=== PATIENT | male | born 1960 | race Caucasian/White ===

== ENCOUNTER 2024-04-28 02:18 | Emergency (ER) | payer OTHER, BC ==
[2024-04-28] MEDS ORDERED: Acetaminophen/Codeine 300-30 MG Tab PO ONE (02:19)
[2024-04-28 03:03] LABS: BLOOD UREA NITROGEN,BUN 6 mg/dL (7-18); BUN/CREATININE RATIO 8.6 (9-20); CALCIUM 9.4 mg/dL (8.6-10.2); CARBON DIOXIDE,CO2 26 mmol/L (21-32); CHLORIDE,CL 97 mmol/L (100-110); CREATININE 0.7 mg/dL (0.70-1.30); ESTIMATED GFR 104 mL/min (>60); GLUCOSE RANDOM 116 mg/dL (80-116); POTASSIUM,K 4.1 mmol/L (3.5-5.3); SODIUM,NA 135 mmol/L (135-145)
[2024-04-28 03:08] LABS: BASOPHILS ABSOLUTE AUTO 0.1 x10-3/uL (0.0-0.3); BASOPHILS PERCENT AUTO 0.9 % (0.3-3.8); EOSINOPHILS ABSOLUTE AUTO 0.1 x10-3/uL (0.0-0.6); EOSINOPHILS PERCENT AUTO 1.5 % (0.1-6.8); HEMATOCRIT 48.5 % (38.3-50.1); HEMOGLOBIN 16.6 g/dL (12.9-17.7); LYMPHOCYTES ABSOLUTE AUTO 0.9 x10-3/uL (0.5-4.5); LYMPHOCYTES PERCENT AUTO 14.1 % (15.8-45.3); MEAN CORPUSCULAR HEMOGLOBIN 30.6 pg (27.0-33.3); MEAN CORPUSCULAR HGB CONC 34.3 g/dL (28.7-35.3); MEAN CORPUSCULAR VOLUME 89.1 fL (80.8-98.7); MEAN PLATELET VOLUME 8.8 fL (6.7-11.0); MONOCYTES ABSOLUTE AUTO 0.8 x10-3/uL (0.0-1.2); MONOCYTES PERCENT AUTO 11.9 % (5.5-15.2); NEUTROPHILS ABSOLUTE AUTO 4.5 x10-3/uL (1.7-6.9); NEUTROPHILS PERCENT AUTO 71.6 % (40.3-71.8); PLATELET COUNT,PLT 221 x10(3)uL (117-477); RED BLOOD CELL COUNT 5.44 x10(6)uL (3.90-5.90); RED CELL DISTRIBUTION WIDTH 13.8 % (12.4-15.0); WHITE BLOOD CELL COUNT,WBC 6.3 x10-3/uL (3.2-10.1)
[2024-04-28 03:09] LABS: ALANINE AMINOTRANSFERASE,ALT 62 U/L (12-36); ALBUMIN 3.9 g/dL (3.2-4.6); ALKALINE PHOSPHATASE 118 IU/L (56-112); ASPARTATE AMNIOTRANSFERASE,AST 51 IU/L (5-25); BILIRUBIN TOTAL 0.6 mg/dL (0.1-1.3); PROTEIN TOTAL,TP 7.9 g/dL (6.0-8.0)
[2024-04-28] MEDS: Ketorolac 30 MG/ML SDV IM ONE (03:09)
[2024-04-28 03:31] LABS: INFLUENZA A NAA NEGATIVE (NEGATIVE); INFLUENZA B NAA NEGATIVE (NEGATIVE); RESPIRATORY SYNCYTIAL VIR NAA NEGATIVE (NEGATIVE)
[2024-04-28 03:33] LABS: CORONAVIRUS COVID-19 NAA NEGATIVE (NEGATIVE)
== END 2024-04-28 03:40 | disposition home or self-care (01) ==
LOC: FB.ED 02:18
DX: R07.81 Pleurodynia (principal); F17.210 Nicotine dependence, cigarettes, uncomplicated; Z88.0 Allergy status to penicillin; Z79.899 Other long term (current) drug therapy; X50.0XXA Overexertion from strenuous movement or load, initial encounter; Y92.512 Supermarket, store or market as the place of occurrence of the external cause
CPT/HCPCS: 0241U; 36415; 71046; 80053; 84484; 85025; 87651; 96372; 99283; A9270; J1885

== ENCOUNTER 2024-06-07 07:23 | Emergency (ER) | payer BC, OTHER | END 2024-06-07 07:44 | disposition left against medical advice (07) | LOC: FB.ED 07:23 | DX: Z53.21 Procedure and treatment not carried out due to patient leaving prior to being seen by health care provider (principal) ==

== ENCOUNTER 2025-01-04 03:28 | Observation (INO) | payer MEDICAID ==
[2025-01-04 04:05] LABS: GLUCOSE,URINE NORMAL (NORMAL); OCCULT BLOOD,URINE NEGATIVE (NEGATIVE)
[2025-01-04 04:09] LABS: APPEARANCE,URINE CLEAR (CLEAR)
[2025-01-04 04:10] LABS: SQUAMOUS EPITHELIAL CELLS,UR RARE (NS,R,O)
[2025-01-04] MEDS ORDERED: Naloxone 0.4 MG/ML SDV IVPUSH PRN (04:18)
[2025-01-04] MEDS: Sodium Chloride 0.9% 10 ML Syringe FLUSH PRN (04:31)
[2025-01-04] MEDS: Ondansetron 4 MG/2 ML SDV IVPUSH ONE (04:36)
[2025-01-04 04:37] LABS: BASOPHILS ABSOLUTE AUTO 0.1 x10-3/uL (0.0-0.3); BASOPHILS PERCENT AUTO 1.0 % (0.3-3.8); EOSINOPHILS ABSOLUTE AUTO 0.1 x10-3/uL (0.0-0.6); EOSINOPHILS PERCENT AUTO 1.2 % (0.1-6.8); LYMPHOCYTES ABSOLUTE AUTO 1.7 x10-3/uL (0.5-4.5); LYMPHOCYTES PERCENT AUTO 18.0 % (15.8-45.3); MEAN PLATELET VOLUME 8.9 fL (6.7-11.0); MONOCYTES ABSOLUTE AUTO 1.0 x10-3/uL (0.0-1.2); MONOCYTES PERCENT AUTO 10.4 % (5.5-15.2); NEUTROPHILS ABSOLUTE AUTO 6.5 x10-3/uL (1.7-6.9); NEUTROPHILS PERCENT AUTO 69.4 % (40.3-71.8); PLATELET COUNT,PLT 219 x10(3)uL (117-477); RED BLOOD CELL COUNT 4.91 x10(6)uL (3.90-5.90); RED CELL DISTRIBUTION WIDTH 12.6 % (12.4-15.0); WHITE BLOOD CELL COUNT,WBC 9.3 x10-3/uL (3.2-10.1)
[2025-01-04] MEDS: HYDROmorphone 2 MG/ML SDV IVPUSH ONE (04:39)
[2025-01-04 04:47] LABS: CARBON DIOXIDE,CO2 30 mmol/L (21-32); CHLORIDE,CL 91 mmol/L (100-110); CREATININE 0.6 mg/dL (0.70-1.30); EST CRCL DRUG DOSING (CG) 140.11 mL/min; ESTIMATED GFR 109 mL/min (>60); GLUCOSE RANDOM 114 mg/dL (80-116); POTASSIUM,K 3.1 mmol/L (3.5-5.3); SODIUM,NA 132 mmol/L (135-145)
[2025-01-04 04:48] LABS: BLOOD UREA NITROGEN,BUN < 5 mg/dL (7-18)
[2025-01-04 04:53] LABS: A/G RATIO 1.0; ALANINE AMINOTRANSFERASE,ALT 25 U/L (12-36); ASPARTATE AMNIOTRANSFERASE,AST 25 IU/L (5-25); BILIRUBIN TOTAL 0.7 mg/dL (0.1-1.3); PROTEIN TOTAL,TP 6.9 g/dL (6.0-8.0)
[2025-01-04] MEDS: Iopamidol 755 Mg/ML 100 ML Bottle IV SCH (05:34)
[2025-01-04] MEDS: Ketorolac 30 MG/ML SDV IVPUSH ONE (05:36)
[2025-01-04] MEDS: Acetaminophen/HYDROcodone 325-5 MG Tab PO PRN (10:12)
[2025-01-04 10:18] LABS: BASE EXCESS ARTERIAL,POC 4 mmol/L (-2 - 3+); HCO3 ARTERIAL,POC 28 mmol/L (21-28); O2 SATURATION ARTERIAL,POC 95.9 % (94-98); PO2 ARTERIAL,POC 76 mmHg (83-108)
[2025-01-04] MEDS: HYDROmorphone 2 MG/ML SDV IVPUSH PRN (13:50)
[2025-01-04] MEDS: Ondansetron 4 MG/2 ML SDV IV PRN (19:49)
== END 2025-01-05 10:25 | disposition home or self-care (01) ==
LOC: FB.ED 03:28 → UNDOADMIN 07:56 → FB.MS 07:56
PROVIDERS: ADMIT Surgery; ATTEND Surgery
DX: S22.42XA Multiple fractures of ribs, left side, initial encounter for closed fracture (principal); J93.9 Pneumothorax, unspecified; I10 Essential (primary) hypertension; E66.9 Obesity, unspecified; Z88.0 Allergy status to penicillin; Z72.0 Tobacco use; Z68.30 Body mass index [BMI] 30.0-30.9, adult; Z79.899 Other long term (current) drug therapy; W16.212A Fall in (into) filled bathtub causing other injury, initial encounter
CPT/HCPCS: 36415; 71045; 71260; 74177; 80053; 81001; 82803; 83735; 85025; 94150; A9270; J1171; J1885; J2405; Q9967

== ENCOUNTER 2025-02-13 12:07 | Emergency (ER) | payer MEDICAID, OTHER ==
[2025-02-13] MEDS: LORazepam 2 MG/ML SDV IVPUSH ONE (12:15)
[2025-02-13] MEDS ORDERED: Sodium Chloride 0.9% 10 ML Syringe FLUSH PRN (12:28)
[2025-02-13] MEDS: LORazepam 2 MG/ML SDV ONE (12:37)
[2025-02-13 12:39] LABS: BASOPHILS ABSOLUTE AUTO 0.1 x10-3/uL (0.0-0.3); BASOPHILS PERCENT AUTO 1.2 % (0.3-3.8); EOSINOPHILS ABSOLUTE AUTO 0.2 x10-3/uL (0.0-0.6); EOSINOPHILS PERCENT AUTO 1.9 % (0.1-6.8); LYMPHOCYTES ABSOLUTE AUTO 3.5 x10-3/uL (0.5-4.5); LYMPHOCYTES PERCENT AUTO 27.8 % (15.8-45.3); MEAN PLATELET VOLUME 10.1 fL (6.7-11.0); MONOCYTES ABSOLUTE AUTO 1.3 x10-3/uL (0.0-1.2); MONOCYTES PERCENT AUTO 10.2 % (5.5-15.2); NEUTROPHILS ABSOLUTE AUTO 7.4 x10-3/uL (1.7-6.9); NEUTROPHILS PERCENT AUTO 58.9 % (40.3-71.8); PLATELET COUNT,PLT 308 x10(3)uL (117-477); RED BLOOD CELL COUNT 5.28 x10(6)uL (3.90-5.90); RED CELL DISTRIBUTION WIDTH 13.6 % (12.4-15.0); WHITE BLOOD CELL COUNT,WBC 12.5 x10-3/uL (3.2-10.1)
[2025-02-13 12:40] LABS: BLOOD UREA NITROGEN,BUN 11 mg/dL (7-18); CARBON DIOXIDE,CO2 21 mmol/L (21-32); CHLORIDE,CL 101 mmol/L (100-110); CREATININE 0.9 mg/dL (0.70-1.30); ESTIMATED GFR 97 mL/min (>60); GLUCOSE RANDOM 122 mg/dL (80-116); POTASSIUM,K 3.3 mmol/L (3.5-5.3); SODIUM,NA 143 mmol/L (135-145)
[2025-02-13 12:51] LABS: A/G RATIO 1.0; ALANINE AMINOTRANSFERASE,ALT 24 U/L (12-36); ASPARTATE AMNIOTRANSFERASE,AST 19 IU/L (5-25); BILIRUBIN TOTAL 0.4 mg/dL (0.1-1.3); PROTEIN TOTAL,TP 8.3 g/dL (6.0-8.0)
[2025-02-13 13:22] LABS: SEDIMENTATION RATE MANUAL 17 mm/hr (0-15)
== END 2025-02-13 14:15 ==
LOC: FB.ED 12:07
DX: R29.810 Facial weakness (principal); R56.9 Unspecified convulsions; R93.0 Abnormal findings on diagnostic imaging of skull and head, not elsewhere classified; I10 Essential (primary) hypertension; J44.9 Chronic obstructive pulmonary disease, unspecified; K21.9 Gastro-esophageal reflux disease without esophagitis; E66.9 Obesity, unspecified; Z79.899 Other long term (current) drug therapy; Z88.0 Allergy status to penicillin; Z68.33 Body mass index [BMI] 33.0-33.9, adult
CPT/HCPCS: 36415; 70450; 80053; 80307; 82947; 83735; 85025; 85651; 86140; 93005; 93010; 96361; 96365; 96375; 99285; 99291; 99292; J1953; J2060; J7030

== ENCOUNTER 2025-03-26 21:07 | Emergency (ER) | payer MEDICAID ==
[2025-03-26 22:32] LABS: MEAN PLATELET VOLUME 8.2 fL (6.7-11.0); PLATELET COUNT,PLT 190 x10(3)uL (117-477); RED BLOOD CELL COUNT 4.85 x10(6)uL (3.90-5.90); RED CELL DISTRIBUTION WIDTH 14.7 % (12.4-15.0); WHITE BLOOD CELL COUNT,WBC 10.3 x10-3/uL (3.2-10.1)
[2025-03-26 22:40] LABS: BLOOD UREA NITROGEN,BUN 28 mg/dL (7-18); CARBON DIOXIDE,CO2 32 mmol/L (21-32); CHLORIDE,CL 104 mmol/L (100-110); CREATININE 0.6 mg/dL (0.70-1.30); EST CRCL DRUG DOSING (CG) 142.41 mL/min; ESTIMATED GFR 108 mL/min (>60); GLUCOSE RANDOM 107 mg/dL (80-116); POTASSIUM,K 3.7 mmol/L (3.5-5.3); SODIUM,NA 142 mmol/L (135-145)
[2025-03-26 22:46] LABS: A/G RATIO 1.0; ALANINE AMINOTRANSFERASE,ALT 27 U/L (12-36); ASPARTATE AMNIOTRANSFERASE,AST 13 IU/L (5-25); BILIRUBIN TOTAL 0.3 mg/dL (0.1-1.3); PROTEIN TOTAL,TP 5.8 g/dL (6.0-8.0)
[2025-03-26 22:49] LABS: LACTIC ACID 1.1 mmol/L (0.4-2.0)
[2025-03-26 22:53] LABS: BAND PERCENT MAN 5 % (0-6); EOSINOPHILS PERCENT MAN 1 % (0-5); LYMPHOCYTES PERCENT MAN 16 % (13-37); MONOCYTES PERCENT MAN 8 % (4-12); SEG NEUTROPHILS PERCENT MAN 70 % (46-82)
== END 2025-03-27 00:10 ==
LOC: FB.ED 21:07
DX: M79.89 Other specified soft tissue disorders (principal); I10 Essential (primary) hypertension; J44.9 Chronic obstructive pulmonary disease, unspecified; E66.9 Obesity, unspecified; Z88.0 Allergy status to penicillin; Z79.899 Other long term (current) drug therapy; Z68.33 Body mass index [BMI] 33.0-33.9, adult
CPT/HCPCS: 36415; 80053; 83605; 85025; 85379; 87428-QW; 99285